=== PATIENT | male | born 1960 | race Caucasian/White ===

== ENCOUNTER → 2016-06-06 | Outpatient (CLI) | payer OTHER ==
[2016-06-06 08:43] LABS: BASO % 0.9 % (0.0-1.0); EOS # 0.1 K/mm3 (0.0-0.50); EOS % 2.2 % (0.0-3.0); LARGE UNSTAINED CELL # 0.3 K/mm3 (0.0-0.4); LARGE UNSTAINED CELL % 4.2 % (0.0-4.0); LYMPH # 1.8 K/mm3 (1.5-4.5); LYMPH % 27.9 % (24.0-44.0); MEAN CORPUSCULAR HEMOGLOBIN 29.8 pg (27.0-33.0); MEAN CORPUSCULAR HGB CONC 34.2 g/dl (32.0-36.5); MEAN CORPUSCULAR VOLUME 87.2 fl (80.0-96.0); MONO # 0.3 K/mm3 (0.0-0.8); MONO % 5.4 % (0.0-5.0); NEUTROPHILS # 3.7 K/mm3 (1.8-7.7); NEUTROPHILS % 59.5 % (36.0-66.0); PLATELET COUNT, AUTOMATED 235 k/mm3 (150-450); RED CELL DISTRIBUTION WIDTH 12.7 % (11.5-14.5); WHITE BLOOD COUNT 6.3 K/mm3 (4.0-10.0)
[2016-06-06 08:58] LABS: ALBUMIN/GLOBULIN RATIO 1.29 (1.00-1.93); ALKALINE PHOSPHATASE 105 U/L (45-117); ALT/SGPT 38 U/L (12-78); ANION GAP 12 MEQ/L (8-16); AST/SGOT 28 U/L (15-37); BILIRUBIN,TOTAL 0.4 MG/DL (0.2-1.0); BLOOD UREA NITROGEN 20 MG/DL (7-18); CALCIUM LEVEL 8.8 MG/DL (8.5-10.1); CARBON DIOXIDE LEVEL 27 MEQ/L (21-32); CHLORIDE LEVEL 105 MEQ/L (98-107); CREATININE FOR GFR 1.22 MG/DL (0.70-1.30); GLOMERULAR FILTRATION RATE > 60.0 (>56); GLUCOSE, FASTING 115 MG/DL (70-105); POTASSIUM SERUM 4.4 MEQ/L (3.5-5.1); SODIUM LEVEL 144 MEQ/L (136-145); TOTAL PROTEIN 7.1 GM/DL (6.4-8.2)
[2016-06-06 11:06] LABS: VITAMIN B12 LEVEL 327 PG/ML (247-911)
== END ==
LOC: M LAB 07:44
PROVIDERS: ATTEND Family Medicine
DX: N18.2 Chronic kidney disease, stage 2 (mild) (principal); I12.9 Hypertensive chronic kidney disease with stage 1 through stage 4 chronic kidney disease, or unspecified chronic kidney disease; E11.9 Type 2 diabetes mellitus without complications; E55.9 Vitamin D deficiency, unspecified

== ENCOUNTER → 2016-12-06 | Outpatient (CLI) | payer OTHER ==
[2016-12-06 08:57] LABS: CHOLESTEROL LEVEL 159 MG/DL (<200); FERRITIN 242 NG/ML (26-388); TRIGLYCERIDES LEVEL 85 MG/DL (<150)
[2016-12-06 14:03] LABS: VITAMIN B12 LEVEL 848 PG/ML (247-911)
[2016-12-08 11:32] LABS: PRETREATED FOLATE FOR RBCFOL 9.9 NG/ML
== END ==
LOC: M LAB 07:33
PROVIDERS: ATTEND Family Medicine
DX: E78.2 Mixed hyperlipidemia (principal); E53.8 Deficiency of other specified B group vitamins; E11.9 Type 2 diabetes mellitus without complications; Z12.5 Encounter for screening for malignant neoplasm of prostate
CPT/HCPCS: 36415; 80061; 82550; 82607; 82728; 82747; 83036; 84443; 86140; G0103

== ENCOUNTER → 2017-04-21 | Outpatient (CLI) | payer OTHER ==
[2017-04-21 09:30] LABS: ESTIMATED AVERAGE GLUCOSE 134 MG/DL (60-110); HEMOGLOBIN A1c 6.3 %
[2017-04-21 09:36] LABS: ALBUMIN 4.2 GM/DL (3.2-5.2); ALBUMIN/GLOBULIN RATIO 1.45 (1.00-1.93); ALKALINE PHOSPHATASE 84 U/L (45-117); ALT/SGPT 36 U/L (12-78); ANION GAP 8 MEQ/L (8-16); AST/SGOT 23 U/L (7-37); BILIRUBIN,TOTAL 0.8 MG/DL (0.2-1.0); BLOOD UREA NITROGEN 18 MG/DL (7-18); CALCIUM LEVEL 8.9 MG/DL (8.5-10.1); CARBON DIOXIDE LEVEL 29 MEQ/L (21-32); CHLORIDE LEVEL 105 MEQ/L (98-107); CHOLESTEROL LEVEL 123 MG/DL (<200); CPK CREATINE PHOSPHOKINASE 66 U/L (39-308); CREATININE FOR GFR 1.21 MG/DL (0.70-1.30); GLOMERULAR FILTRATION RATE > 60.0 (>56); GLUCOSE, FASTING 105 MG/DL (70-105); HDL CHOLESTEROL 60 MG/DL (>40); LDL CHOLESTEROL 48.6 MG/DL (<100); MAGNESIUM LEVEL 2.4 MG/DL (1.8-2.4); NON-HDL-C 63 MG/DL; POTASSIUM SERUM 4.6 MEQ/L (3.5-5.1); PSA SCREENING 1.92 NG/ML (< 4.0); SODIUM LEVEL 142 MEQ/L (136-145); TOTAL PROTEIN 7.1 GM/DL (6.4-8.2); TRIGLYCERIDES LEVEL 72 MG/DL (<150)
[2017-04-23 11:23] LABS: TOTAL 25(OH) VITAMIN D 50.1 NG/ML (30.0-100.0)
[2017-04-23 11:39] LABS: PTH INTACT 37.9 PG/ML (14.0-72.0)
[2017-04-24 14:14] LABS: INSULIN LEVEL 11.1 uIU/mL (2.6-24.9)
== END ==
LOC: M LAB 08:02
DX: E78.2 Mixed hyperlipidemia (principal); N18.2 Chronic kidney disease, stage 2 (mild); Z12.5 Encounter for screening for malignant neoplasm of prostate; E11.9 Type 2 diabetes mellitus without complications; E55.9 Vitamin D deficiency, unspecified

== ENCOUNTER → 2017-08-29 | Outpatient (CLI) | payer OTHER ==
[2017-08-29 08:45] LABS: BASO % 0.6 % (0.0-1.0); EOS # 0.1 10^3/uL (0.0-0.50); HEMATOCRIT 45.9 % (42.0-52.0); HEMOGLOBIN 15.3 g/dl (13.5-17.5); IMMATURE GRANULOCYTE % 0.4 % (0-3.0); LYMPH # 2.1 10^3/uL (1.5-4.5); LYMPH % 29.8 % (24.0-44.0); MEAN CORPUSCULAR HEMOGLOBIN 29.3 pg (27.0-33.0); MEAN CORPUSCULAR HGB CONC 33.3 g/dl (32.0-36.5); MEAN CORPUSCULAR VOLUME 87.8 fl (80.0-96.0); MONO # 0.7 10^3/uL (0.0-0.8); MONO % 9.6 % (0.0-5.0); NEUTROPHILS % 57.6 % (36.0-66.0); PLATELET COUNT, AUTOMATED 288 10^3/uL (150-450); RED BLOOD COUNT 5.23 10^6/uL (4.30-6.10); RED CELL DISTRIBUTION WIDTH 13.1 % (11.5-14.5); WHITE BLOOD COUNT 6.9 10^3/uL (4.0-10.0)
[2017-08-29 08:51] LABS: APPEARANCE, URINE CLEAR (CLEAR); BACTERIA, URINE AUTO NEGATIVE (NEGATIVE); BILIRUBIN, URINE AUTO NEGATIVE (NEGATIVE); BLOOD, URINE BLOOD NEGATIVE (NEGATIVE); COLOR, URINE YELLOW (YELLOW); GLUCOSE, URINE (UA) AUTO NEGATIVE (NEGATIVE); KETONE, URINE AUTO NEGATIVE (NEGATIVE); LEUKOCYTE ESTERASE, URINE AUTO NEGATIVE (NEGATIVE); MUCUS, URINE SMALL (NEGATIVE); NITRITE, URINE AUTO NEGATIVE (NEGATIVE); PROTEIN, URINE AUTO NEGATIVE (NEGATIVE); RBC, URINE AUTO 0 /HPF (0-3); SPECIFIC GRAVITY URINE AUTO 1.019 (1.002-1.035); SQUAMOUS EPITHELIAL CELL UR AU 0 /HPF (0-6); UROBILINOGEN, URINE AUTO 0.2 mg/dL (0.0-2.0); WBC, URINE AUTO 0 /HPF (0-3)
[2017-08-29 09:22] LABS: ALBUMIN 4.1 GM/DL (3.2-5.2); ALBUMIN/GLOBULIN RATIO 1.28 (1.00-1.93); ALKALINE PHOSPHATASE 83 U/L (45-117); ALT/SGPT 34 U/L (12-78); ANION GAP 5 MEQ/L (8-16); AST/SGOT 22 U/L (7-37); BILIRUBIN,TOTAL 0.8 MG/DL (0.2-1.0); BLOOD UREA NITROGEN 21 MG/DL (7-18); CALCIUM LEVEL 9.1 MG/DL (8.5-10.1); CARBON DIOXIDE LEVEL 30 MEQ/L (21-32); CHLORIDE LEVEL 106 MEQ/L (98-107); CREATININE FOR GFR 1.24 MG/DL (0.70-1.30); FERRITIN 201 NG/ML (26-388); GLOMERULAR FILTRATION RATE > 60.0 (>56); GLUCOSE, FASTING 103 MG/DL (70-100); MALB URINE SIEMENS 14.5 MG/L; MAU/CREAT RATIO 7.5 MCG/MG (0.0-30.0); POTASSIUM SERUM 4.8 MEQ/L (3.5-5.1); SODIUM LEVEL 141 MEQ/L (136-145); TOTAL PROTEIN 7.3 GM/DL (6.4-8.2)
[2017-08-29 09:33] LABS: ESTIMATED AVERAGE GLUCOSE 134 MG/DL (60-110); HEMOGLOBIN A1c 6.3 %
[2017-08-29 11:01] LABS: VITAMIN B12 LEVEL 507 PG/ML (247-911)
== END ==
LOC: M LAB 07:46
DX: E53.8 Deficiency of other specified B group vitamins (principal); I10 Essential (primary) hypertension; E11.9 Type 2 diabetes mellitus without complications
CPT/HCPCS: 82607

== ENCOUNTER → 2017-10-11 | Outpatient (CLI) | payer OTHER | LOC: M RAD 15:21 | DX: J32.9 Chronic sinusitis, unspecified (principal) | CPT/HCPCS: 70220 ==

== ENCOUNTER → 2017-12-19 | Outpatient (CLI) | payer OTHER | LOC: M SMT 12:43 | DX: I10 Essential (primary) hypertension (principal) | CPT/HCPCS: 71046 ==

== ENCOUNTER → 2017-12-20 | Outpatient (REF) | payer OTHER | LOC: M SFHCPLAZ 15:41 | DX: J32.9 Chronic sinusitis, unspecified (principal) ==

== ENCOUNTER → 2018-02-15 | Outpatient (CLI) | payer OTHER ==
[2018-02-15 13:33] LABS: BASO # 0.1 10^3/uL (0.0-0.2); BASO % 0.8 % (0.0-1.0); EOS # 0.1 10^3/uL (0.0-0.50); HEMATOCRIT 44.1 % (42.0-52.0); HEMOGLOBIN 15.2 g/dl (13.5-17.5); IMMATURE GRANULOCYTE % 0.5 % (0-3.0); LYMPH # 1.9 10^3/uL (1.5-4.5); LYMPH % 29.5 % (24.0-44.0); MEAN CORPUSCULAR HEMOGLOBIN 29.8 pg (27.0-33.0); MEAN CORPUSCULAR HGB CONC 34.5 g/dl (32.0-36.5); MEAN CORPUSCULAR VOLUME 86.5 fl (80.0-96.0); MONO # 0.6 10^3/uL (0.0-0.8); MONO % 8.8 % (0.0-5.0); NEUTROPHILS # 3.9 10^3/uL (1.8-7.7); NEUTROPHILS % 58.4 % (36.0-66.0); PLATELET COUNT, AUTOMATED 291 10^3/uL (150-450); RETIC HEMOGLOBIN EQUIVALENT 34.6 pg (24-36); WHITE BLOOD COUNT 6.6 10^3/uL (4.0-10.0)
[2018-02-15 13:51] LABS: ALBUMIN 4.2 GM/DL (3.2-5.2); ALKALINE PHOSPHATASE 74 U/L (45-117); ALT/SGPT 32 U/L (12-78); ANION GAP 7 MEQ/L (8-16); AST/SGOT 20 U/L (7-37); BILIRUBIN,TOTAL 0.6 MG/DL (0.2-1.0); BLOOD UREA NITROGEN 27 MG/DL (7-18); C REACTIVE PROTEIN QUANTITATIV < 0.30 MG/DL (0.00-0.30); CALCIUM LEVEL 9.7 MG/DL (8.5-10.1); CARBON DIOXIDE LEVEL 27 MEQ/L (21-32); CHLORIDE LEVEL 104 MEQ/L (98-107); CHOLESTEROL LEVEL 139 MG/DL (<200); CHOLESTEROL RISK RATIO 2.316 (<5); CPK CREATINE PHOSPHOKINASE 86 U/L (39-308); CREATININE FOR GFR 1.39 MG/DL (0.70-1.30); FREE T4 1.22 NG/DL (0.76-1.46); GLOMERULAR FILTRATION RATE 55.9 (>56); GLUCOSE, FASTING 100 MG/DL (70-100); HDL CHOLESTEROL 60 MG/DL (>40); LDL CHOLESTEROL 62 MG/DL (<100); NON-HDL-C 79 MG/DL; POTASSIUM SERUM 4.7 MEQ/L (3.5-5.1); SODIUM LEVEL 138 MEQ/L (136-145); TOTAL PROTEIN 7.2 GM/DL (6.4-8.2); TRIGLYCERIDES LEVEL 86 MG/DL (<150)
[2018-02-15 13:59] LABS: ESTIMATED AVERAGE GLUCOSE 137 MG/DL (60-110); HEMOGLOBIN A1c 6.4 %
== END ==
LOC: M SMT 08:48
DX: E53.8 Deficiency of other specified B group vitamins (principal); N18.2 Chronic kidney disease, stage 2 (mild); E11.22 Type 2 diabetes mellitus with diabetic chronic kidney disease
CPT/HCPCS: 82550

== ENCOUNTER → 2018-02-15 | Outpatient (CLI) | payer OTHER ==
[2018-02-15 14:46] LABS: COMPLEMENT C3 135 MG/DL (90-180); COMPLEMENT C4 23 MG/DL (10-40); IMMUNOGLOBULIN A 153 MG/DL (70-400); IMMUNOGLOBULIN G 740 MG/DL (681-1648); IMMUNOGLOBULIN M 162 MG/DL (40-230)
[2018-02-15 14:47] LABS: IMMUNOGLOBULIN E < 3.6 IU/ML (<100)
[2018-02-19 00:06] LABS: ALPHA 1 ANTITRYPSIN 140 mg/dL (90-200)
[2018-02-19 00:06] LABS: D001-IgE D pteronyssinus 1.52 kU/L (Class III); E001-IgE Cat Epith/Dander 0.21 kU/L (Class 0/I); E005-IgE Dog Dander < 0.10 kU/L (Class 0); F002-IgE Milk 0.13 kU/L (Class 0/I); F004-IgE Wheat < 0.10 kU/L (Class 0); F013-IgE Peanut < 0.10 kU/L (Class 0); F014-IgE Soybean < 0.10 kU/L (Class 0); F026-IgE Pork < 0.10 kU/L (Class 0); F027-IgE Beef < 0.10 kU/L (Class 0); FX02-IgE Food Mix (Sea Foods) Negative (.); G002-IgE Bermuda Grass < 0.10 kU/L (Class 0); G008-IgE Kentucky Bluegrass 0.97 kU/L (Class II); M001-IgE Penicillium chrysogen < 0.10 kU/L (Class 0); M002 IgE Cladosporium herbaru < 0.10 kU/L (Class 0); M003 IgE Aspergillus fumigatu < 0.10 kU/L (Class 0); M006-IgE Alternaria alternata < 0.10 kU/L (Class 0); T001-IgE Maple/Box Elder < 0.10 kU/L (Class 0); T003-IgE Common Silver Birch < 0.10 kU/L (Class 0); T006-IgE Cedar, Mountain < 0.10 kU/L (Class 0); T007-IgE Oak, White < 0.10 kU/L (Class 0); T008-IgE Elm, American < 0.10 kU/L (Class 0); T015-IgE Ash, White < 0.10 kU/L (Class 0); T041-IgE Hickory, White < 0.10 kU/L (Class 0); T070-IgE White Mulberry < 0.10 kU/L (Class 0); W001-IgE Ragweed, Short < 0.10 kU/L (Class 0); W009-IgE Plantain, English < 0.10 kU/L (Class 0); W014-IgE Pigweed, Rough < 0.10 kU/L (Class 0); W018-IgE Sheep Sorrel < 0.10 kU/L (Class 0)
== END ==
LOC: M SMT 08:44
DX: J30.1 Allergic rhinitis due to pollen (principal); J30.81 Allergic rhinitis due to animal (cat) (dog) hair and dander; J30.89 Other allergic rhinitis; R05 Cough; J45.40 Moderate persistent asthma, uncomplicated; H10.45 Other chronic allergic conjunctivitis; J32.0 Chronic maxillary sinusitis
CPT/HCPCS: 82785

== ENCOUNTER → 2018-02-27 | Outpatient (CLI) | payer OTHER | LOC: M RAD 08:40 | DX: N18.2 Chronic kidney disease, stage 2 (mild) (principal) | CPT/HCPCS: 76775 ==

== ENCOUNTER → 2018-04-11 | Outpatient (CLI) | payer OTHER ==
[~2018-04-11] MED LIST: ADV500INH INH; AYRSPR; ESOM1CAP5 PO; EXCETAB81 PO; FLON1SPR; FLOV250A2 INH; IBUP200C25 PO; IRBE75TA5 PO; KETO2CR EXT; METF750T PO; MONT10TA2 PO; MUCI600T31 PO; OLOP1OPD OU; PROAAER10 INH; ROBI1CAP PO; SIMV40TA2 PO; SUDA30TA8 PO; VITA200016 PO; VITA500T3 PO; ZYRT10CA5 PO
--- NOTE | 2018-04-12 01:56 | REP ---
Clinical: Acute cough . Comparison: 12/19/2017 . Technique: PA and lateral. Findings: The mediastinum and cardiac silhouette are normal. The lung valdez are clear and without acute consolidation, effusion, or pneumothorax. The skeletal structures are intact and normal. Impression: 1. No acute cardiopulmonary process. Electronically Signed by Pavel Alexander MD 04/12/2018 01:47 A
== END ==
LOC: M SMT 15:32
PROVIDERS: ATTEND Internal Medicine Pulmonary Disease
DX: R05 Cough (principal)

== ENCOUNTER 2018-04-17 07:40 | Day surgery (SDC) | payer OTHER ==
[~2018-04-17] VITALS: Ht 182.9 cm; Wt 69.9 kg
[~2018-04-17 07:40] MED LIST changes: +NS 1,000 ML IV SCH
[2018-04-17] MEDS ORDERED: PROPOFOL 200 MG/20 ML VIAL As Ordered ONE (09:06)
[2018-04-17] MEDS ORDERED: fentaNYL 100 MCG/2 ML INJECTION (J3010) As Ordered ONE (09:06)
[2018-04-17] MEDS ORDERED: LIDOCAINE 2% INJ 100 MG/5 ML SDV (FOR ANES.) As Ordered ONE (09:06)
--- NOTE | 2018-04-17 09:21 | ROOR ---
Patient Name: Aquiles Weir Procedure Date: 04/17/2018 9:05 AM Date of : 1960 Age: 57 [facility]: [facility] Gender: Male Note Status: Finalized Procedure: Upper Endoscopy + Biopsies Indications: Heartburn, Exclusion of Smith's esophagus Providers: Maximo Chiang MD Referring MD: Filemon Anderson MD Requesting Provider: Medicines: Monitored Anesthesia Care Complications: No immediate complications. Procedure: Pre-Anesthesia Assessment: - The heart rate, respiratory rate, oxygen saturations, blood pressure, adequacy of pulmonary ventilation, and response to care were monitored throughout the procedure. The Endoscope was introduced through the mouth, and advanced to the second part of duodenum. The upper GI endoscopy was accomplished without difficulty. The patient tolerated the procedure well. Findings: The Z-line was irregular and was found 39 cm from the incisors. Multiple biopsies were obtained with cold forceps for evaluation to rule out Smith's Esophagus randomly at the gastroesophageal junction. No other significant abnormalities were identified in a careful examination of the stomach. The exam of the duodenum was otherwise normal. Impression: - Z-line irregular, 39 cm from the incisors. - Multiple biopsies were obtained at the gastroesophageal junction. - The examination was otherwise normal. Recommendation: - Patient has a contact number available for emergencies. The signs and symptoms of potential delayed complications were discussed with the patient. Return to normal activities tomorrow. Written discharge instructions were provided to the patient. - High fiber diet. - Discharge patient to home. - Follow an antireflux regimen. - Continue present medications. - Await pathology results. - Telephone GI clinic for pathology results in 1 week. - Return to referring physician. - The findings and recommendations were discussed with the patient's family. Maximo Chiang MD Maximo Chiang MD 04/17/2018 9:21:05 AM This report has been signed electronically. Number of Addenda: 0 Note Initiated On: 04/17/2018 9:05 AM Estimated Blood Loss: Estimated blood loss: none.
--- NOTE | 2018-04-17 09:39 | ROOR ---
Patient Name: Aquiles Weir Procedure Date: 04/17/2018 9:06 AM Date of : 1960 Age: 57 Room: [facility] Gender: Male Note Status: Finalized Procedure: Total Colonoscopy to Cecum + Cold Snare Polypectomy + Hemoclip Indications: High risk colon cancer surveillance: Personal history of colonic polyps, Last colonoscopy: 2010 Providers: Maximo Chiang MD Referring MD: Filemon Anderson MD Requesting Provider: Medicines: Monitored Anesthesia Care Complications: No immediate complications. Procedure: Pre-Anesthesia Assessment: - The heart rate, respiratory rate, oxygen saturations, blood pressure, adequacy of pulmonary ventilation, and response to care were monitored throughout the procedure. The Colonoscope was introduced through the anus and advanced to the cecum, identified by appendiceal orifice and ileocecal valve. The colonoscopy was performed without difficulty. The patient tolerated the procedure well. The quality of the bowel preparation was excellent. Findings: The perianal and digital rectal examinations were normal. Non-bleeding internal hemorrhoids were found during retroflexion. The hemorrhoids were small and Grade I (internal hemorrhoids that do not prolapse). A medium polyp was found at 40 cm proximal to the anus. The polyp was sessile. The polyp was removed with a cold snare. Resection and retrieval were complete. To prevent bleeding after the polypectomy, one hemostatic clip was successfully placed (MR conditional). There was no bleeding at the end of the procedure. The exam was otherwise without abnormality on direct and retroflexion views. Impression: - Non-bleeding internal hemorrhoids. - One medium polyp at 40 cm proximal to the anus, removed with a cold snare. Resected and retrieved. Clip (MR conditional) was placed. - The examination was otherwise normal on direct and retroflexion views. - The exam was otherwise normal to the cecum. Recommendation: - Patient has a contact number available for emergencies. The signs and symptoms of potential delayed complications were discussed with the patient. Return to normal activities tomorrow. Written discharge instructions were provided to the patient. - Discharge patient to home. - Continue present medications. - Await pathology results. - Telephone GI clinic for pathology results in 1 week. - Repeat colonoscopy in 5 years for surveillance based on pathology results. - Return to referring physician. - The findings and recommendations were discussed with the patient's family. Maximo Chiang MD Maximo Chiang MD 04/17/2018 9:38:45 AM This report has been signed electronically. Number of Addenda: 0 Note Initiated On: 04/17/2018 9:06 AM Estimated Blood Loss: Estimated blood loss: none.
[2018-04-17 10:08] VITALS: BP 147/88
== END 2018-04-17 10:09 | disposition home or self-care (01) ==
LOC: M OPP 07:40
PROVIDERS: ATTEND Internal Medicine Gastroenterology
DX: Z12.11 Encounter for screening for malignant neoplasm of colon (principal); Z86.010 Personal history of colon polyps; K64.0 First degree hemorrhoids; K63.5 Polyp of colon; K22.8 Other specified diseases of esophagus; R12 Heartburn; E11.9 Type 2 diabetes mellitus without complications; Z79.84 Long term (current) use of oral hypoglycemic drugs; Z79.899 Other long term (current) drug therapy; Z91.040 Latex allergy status
CPT/HCPCS: 43239; 45385; 88305; J3010

== ENCOUNTER → 2018-04-25 | Outpatient (CLI) | payer OTHER ==
[~2018-04-25] MED LIST changes: -NS 1,000 ML IV SCH
[2018-04-25 15:01] LABS: BLOOD UREA NITROGEN 22 MG/DL (7-18); CREATININE FOR GFR 1.26 MG/DL (0.70-1.30); GLOMERULAR FILTRATION RATE > 60.0 (>56)
== END ==
LOC: M LAB 13:01
PROVIDERS: ATTEND Internal Medicine Pulmonary Disease
DX: Z01.812 Encounter for preprocedural laboratory examination (principal)

== ENCOUNTER → 2018-04-29 | Outpatient (CLI) | payer OTHER ==
[~2018-04-29] MED LIST changes: +ISOVUE-370 76% 100ML VIAL (Q9967) As Ordered ONE
--- NOTE | 2018-04-29 11:58 | REP ---
Clinical: Cough. Technique: Axial contrast enhanced images from the thoracic inlet to the upper abdomen with coronal and sagittal re-formations using 100 ml Isovue 370 intravenous contrast material. Findings: Lung valdez are well-aerated and without consolidation. Minimal linear scarring at the lingula and right lower lobe noted. Very subtle areas of opacity are suggested within the left upper lobe (images 50-55) and left base which may reflect early or resolving pneumonitis. Mild infrahilar bronchiectasis is suggested. No effusion. No pneumothorax. Tracheobronchial tree is patent. No axillary, hilar, or mediastinal adenopathy. The mediastinum demonstrates normal thoracic aorta and heart/pericardium. Surrounding musculoskeletal structures are intact. Limited upper abdomen demonstrates normal bilateral adrenal glands. Impression: 1. Extremely subtle areas of opacity in the left upper lobe and left base may represent early or resolving pneumonitis and should be correlated clinically. 2. Mild infrahilar bronchiectasis. Electronically Signed by Pavel Alexander MD 04/29/2018 11:50 A
== END ==
LOC: M RAD 10:30
PROVIDERS: ATTEND Internal Medicine Pulmonary Disease
DX: R05 Cough (principal); J47.9 Bronchiectasis, uncomplicated
CPT/HCPCS: 71260; Q9967

== ENCOUNTER → 2018-05-09 | Outpatient (REF) | payer OTHER ==
[~2018-05-09] MED LIST changes: -ISOVUE-370 76% 100ML VIAL (Q9967) As Ordered ONE
[2018-05-09 15:08] LABS: IMMUNOGLOBULIN E 12.7 IU/ML (<100); IMMUNOGLOBULIN G 686 MG/DL (681-1648); RHEUMATOID FACTOR QUANT < 10.0 IU/ML (<15.0)
[2018-05-14 01:34] LABS: ANCA-ATYPICAL <1:20 titer (Neg:<1:20); ANTI DOUBLE STRAND-DNA AB <1 IU/mL (0-9); ANTINUCLEAR ANTIBODIES DIRECT Negative (Negative); ASPERGILLUS FLAVUS ABY Negative (Neg:<1:1); ASPERGILLUS FUMIGATUS ABY Negative (Neg:<1:1); ASPERGILLUS NIGER ABY Negative (Neg:<1:1); CYTOPLASMIC NEUTROP AB ANCA-C <1:20 titer (Neg:<1:20); IgG SERUM (part of Subclasses) 683 mg/dL (700-1600); IgG Subclass 1 395 mg/dL (248-810); IgG Subclass 2 257 mg/dL (130-555); IgG Subclass 3 41 mg/dL (15-102); IgG Subclass 4 25 mg/dL (2-96); PERINUCLEAR AB ANCA-P <1:20 titer (Neg:<1:20); RNP ANTIBODIES <0.2 AI (0.0-0.9); SJOGREN'S ANTI SS-A <0.2 AI (0.0-0.9); SJOGREN'S ANTI SS-B <0.2 AI (0.0-0.9); SMITH ANTIBODIES <0.2 AI (0.0-0.9)
== END ==
LOC: M LAB REF 12:56
PROVIDERS: ATTEND Internal Medicine Pulmonary Disease
DX: J47.9 Bronchiectasis, uncomplicated (principal)

== ENCOUNTER → 2018-06-13 | Outpatient (CLI) | payer OTHER | LOC: M LAB 09:38 | PROVIDERS: ATTEND Internal Medicine Pulmonary Disease | DX: J47.9 Bronchiectasis, uncomplicated (principal) ==

== ENCOUNTER → 2018-06-19 | Outpatient (CLI) | payer OTHER ==
[2018-06-19 10:44] LABS: WEIGHT OF SWEAT LFT ARM QNS MG; WEIGHT OF SWEAT RT ARM QNS MG
== END ==
LOC: M LAB 09:37
PROVIDERS: ATTEND Internal Medicine Pulmonary Disease
DX: J47.9 Bronchiectasis, uncomplicated (principal)

== ENCOUNTER → 2018-07-02 | Outpatient (CLI) | payer OTHER ==
[~2018-07-02] MED LIST changes: -OLOP1OPD OU; +PATA2.5S OU
[2018-07-02 12:51] LABS: ALBUMIN 3.9 GM/DL (3.2-5.2); ALT/SGPT 36 U/L (12-78); BILIRUBIN,TOTAL 0.5 MG/DL (0.2-1.0); BLOOD UREA NITROGEN 19 MG/DL (7-18); C REACTIVE PROTEIN QUANTITATIV 0.34 MG/DL (0.00-0.30); CALCIUM LEVEL 9.5 MG/DL (8.5-10.1); CARBON DIOXIDE LEVEL 28 MEQ/L (21-32); CHLORIDE LEVEL 107 MEQ/L (98-107); CREATININE FOR GFR 1.27 MG/DL (0.70-1.30); GLOMERULAR FILTRATION RATE > 60.0 (>56); GLUCOSE, FASTING 98 MG/DL (70-100); POTASSIUM SERUM 4.8 MEQ/L (3.5-5.1); SODIUM LEVEL 141 MEQ/L (136-145); TOTAL PROTEIN 6.9 GM/DL (6.4-8.2)
[2018-07-04 00:06] LABS: % CD8 Pos Lymph 17.9 % (12.0-35.5); %CD4 Pos Lymphs 49.6 % (30.8-58.5); ABS Eosinophils 0.1 x10E3/uL (0.0-0.4); ABS Lymphs 1.5 x10E3/uL (0.7-3.1); ABS Monocytes 0.9 x10E3/uL (0.1-0.9); ABS Neutophils 5.5 x10E3/uL (1.4-7.0); Abs CD4 Helper 744 /uL (359-1519); Abs CD8 Suppres 269 /uL (109-897); CD4/CD8 Ratio 2.77 (0.92-3.72); Eosinophils 1 % (Not Estab.); HCT 40.9 % (37.5-51.0); HGB 14.3 g/dL (13.0-17.7); Imm ABS Grans 0.1 x10E3/uL (0.0-0.1); Immature Grans 2 % (Not Estab.); Lymphocytes 19 % (Not Estab.); MCH 29.9 pg (26.6-33.0); MCV 86 fL (79-97); Monocytes 11 % (Not Estab.); Neutrophils 67 % (Not Estab.); Platelets 320 x10E3/uL (150-379); RBC 4.78 x10E6/uL (4.14-5.80); RDW 13.3 % (12.3-15.4); WBC 8.2 x10E3/uL (3.4-10.8)
[2018-07-05 11:13] LABS: CRYPTOCOCCUS ANTIBODY SERUM Negative (Neg:<1:2); CRYPTOCOCCUS ANTIGEN SER Negative (Negative)
== END ==
LOC: M LAB 10:12
PROVIDERS: ATTEND Internal Medicine Infectious Disease
DX: B45.9 Cryptococcosis, unspecified (principal)

== ENCOUNTER → 2018-07-30 | Outpatient (CLI) | payer OTHER ==
[2018-07-30 10:33] LABS: BILIRUBIN,TOTAL 0.6 MG/DL (0.2-1.0); CALCIUM LEVEL 8.8 MG/DL (8.5-10.1); CREATININE FOR GFR 1.44 MG/DL (0.70-1.30); GLOMERULAR FILTRATION RATE 53.5 (>56); MAGNESIUM LEVEL 1.9 MG/DL (1.8-2.4); POTASSIUM SERUM 4.6 MEQ/L (3.5-5.1); PTH INTACT 48.4 PG/ML (18.5-88.0); TOTAL 25(OH) VITAMIN D 50.3 NG/ML (30.0-100.0); TOTAL PROTEIN 7.3 GM/DL (6.4-8.2)
[2018-07-30 10:49] LABS: HEMOGLOBIN A1c 6.5 %
== END ==
LOC: M LAB 08:52
PROVIDERS: ATTEND Family Medicine
DX: N18.2 Chronic kidney disease, stage 2 (mild) (principal); E11.9 Type 2 diabetes mellitus without complications; Z12.5 Encounter for screening for malignant neoplasm of prostate; E55.9 Vitamin D deficiency, unspecified; E53.8 Deficiency of other specified B group vitamins
CPT/HCPCS: 36415; 80053; 82306; 82607; 83036; 83735; 83970; G0103

== ENCOUNTER → 2018-08-19 | Outpatient (CLI) | payer OTHER ==
[2018-08-19 19:38] LABS: BASO % 0.3 % (0.0-1.0); EOS % 0.2 % (0.0-3.0); HEMATOCRIT 43.1 % (42.0-52.0); HEMOGLOBIN 14.5 g/dl (13.5-17.5); LYMPH # 0.9 10^3/uL (1.5-4.5); MEAN CORPUSCULAR HGB CONC 33.6 g/dl (32.0-36.5); MEAN CORPUSCULAR VOLUME 89.2 fl (80.0-96.0); MONO # 1.2 10^3/uL (0.0-0.8); MONO % 7.7 % (0.0-5.0); NEUTROPHILS % 85.4 % (36.0-66.0); PLATELET COUNT, AUTOMATED 294 10^3/uL (150-450); RED BLOOD COUNT 4.83 10^6/uL (4.30-6.10); WHITE BLOOD COUNT 15.2 10^3/uL (4.0-10.0)
--- NOTE | 2018-08-19 19:48 | REP ---
CHEST, TWO VIEWS: Two views of the chest are performed and compared to prior study of 04/11/2018. There is mild infiltrate in the lingula and left lower lobe. Right lung appears clear. Heart is normal in size. The mediastinal silhouette is unchanged. IMPRESSION: Lingular and left lower lobe infiltrate. Electronically Signed by Vincent Small MD 08/19/2018 08:04 P
[2018-08-19 20:01] LABS: ALBUMIN 3.9 GM/DL (3.2-5.2); BILIRUBIN,TOTAL 1.4 MG/DL (0.2-1.0); CALCIUM LEVEL 9.7 MG/DL (8.5-10.1); CREATININE FOR GFR 1.66 MG/DL (0.70-1.30); GLOMERULAR FILTRATION RATE 45.4 (>56); POTASSIUM SERUM 4.9 MEQ/L (3.5-5.1); TOTAL PROTEIN 7.1 GM/DL (6.4-8.2)
== END ==
LOC: M WUC 18:35
PROVIDERS: ATTEND Physician Assistant
DX: R91.8 Other nonspecific abnormal finding of lung field (principal); R05 Cough; R50.9 Fever, unspecified

== ENCOUNTER → 2018-09-03 | Outpatient (CLI) | payer OTHER ==
--- NOTE | 2018-09-04 05:46 | REP ---
Clinical: Mycobacterial infection. Technique: Axial noncontrast images from the thoracic inlet to the upper abdomen with coronal and sagittal re-formations. Comparison: 04/26/2018. Findings: Very subtle tree in bud type opacities are appreciated primarily in the left lower lobe and lingula and to a lesser extent the right base. These findings appear slightly more pronounced than prior examination. No focal consolidation or effusion. No pneumothorax. Mild/early moderate chronic perihilar/infrahilar bronchiectasis is again noted. No significant axillary, hilar, or mediastinal adenopathy. Mediastinum demonstrates normal thoracic aorta and heart/pericardium. Limited upper abdomen is unremarkable. Impression: 1. Very subtle areas of opacity in the left lower lobe, lingula and right base may be consistent with the given history of mycobacterial infection. No discrete focal consolidation or effusion. Short-term follow-up to resolution may be warranted. 2. Early moderate chronic bronchiectasis. Electronically Signed by Pavel Alexander MD 09/04/2018 05:38 A
== END ==
LOC: M RAD 08:17
PROVIDERS: ATTEND Internal Medicine Infectious Disease
DX: R91.8 Other nonspecific abnormal finding of lung field (principal); J47.1 Bronchiectasis with (acute) exacerbation

== ENCOUNTER → 2018-10-23 | Outpatient (CLI) | payer OTHER ==
[~2018-10-23] MED LIST changes: +CYAN500T8 PO; -VITA500T3 PO
[2018-10-23 08:39] LABS: BASO % 0.7 % (0.0-1.0); EOS # 0.2 10^3/uL (0.0-0.50); EOS % 3.2 % (0.0-3.0); HEMATOCRIT 41.9 % (42.0-52.0); LYMPH # 1.4 10^3/uL (1.5-4.5); LYMPH % 25.2 % (24.0-44.0); MEAN CORPUSCULAR HGB CONC 33.4 g/dl (32.0-36.5); MEAN CORPUSCULAR VOLUME 89.9 fl (80.0-96.0); MONO # 0.6 10^3/uL (0.0-0.8); MONO % 10.9 % (0.0-5.0); NEUTROPHILS # 3.3 10^3/uL (1.8-7.7); NEUTROPHILS % 59.5 % (36.0-66.0); PLATELET COUNT, AUTOMATED 271 10^3/uL (150-450); RED BLOOD COUNT 4.66 10^6/uL (4.30-6.10); WHITE BLOOD COUNT 5.6 10^3/uL (4.0-10.0)
[2018-10-23 08:58] LABS: ALT/SGPT 30 U/L (12-78); BILIRUBIN,TOTAL 0.6 MG/DL (0.2-1.0); BLOOD UREA NITROGEN 21 MG/DL (7-18); C REACTIVE PROTEIN QUANTITATIV < 0.30 MG/DL (0.00-0.30); CALCIUM LEVEL 9.5 MG/DL (8.5-10.1); CARBON DIOXIDE LEVEL 31 MEQ/L (21-32); CHLORIDE LEVEL 106 MEQ/L (98-107); CREATININE FOR GFR 1.37 MG/DL (0.70-1.30); GLOMERULAR FILTRATION RATE 56.6 (>56); GLUCOSE, FASTING 96 MG/DL (70-100); POTASSIUM SERUM 4.2 MEQ/L (3.5-5.1); SODIUM LEVEL 141 MEQ/L (136-145)
== END ==
LOC: M LAB 07:40
PROVIDERS: ATTEND Internal Medicine Infectious Disease
DX: J47.9 Bronchiectasis, uncomplicated (principal); A31.0 Pulmonary mycobacterial infection

== ENCOUNTER → 2018-12-10 | Outpatient (REF) | payer OTHER ==
[~2018-12-10] MED LIST changes: -METF750T PO; +METF750T36 PO
== END ==
LOC: M SFHCPLAZ 16:13
PROVIDERS: ATTEND Internal Medicine Infectious Disease
DX: A31.0 Pulmonary mycobacterial infection (principal)

== ENCOUNTER → 2019-03-04 | Outpatient (CLI) | payer OTHER ==
[~2019-03-04] MED LIST changes: -SIMV40TA2 PO; +SIMV40TA20 PO
[2019-03-04 08:52] LABS: BASO # 0.1 10^3/uL (0.0-0.2); BASO % 0.8 % (0.0-1.0); EOS # 0.2 10^3/uL (0.0-0.5); HEMATOCRIT 43.4 % (42.0-52.0); HEMOGLOBIN 14.5 g/dl (13.5-17.5); LYMPH # 1.8 10^3/uL (1.5-5.0); LYMPH % 26.9 % (24.0-44.0); MEAN CORPUSCULAR HEMOGLOBIN 29.5 pg (27.0-33.0); MEAN CORPUSCULAR HGB CONC 33.4 g/dl (32.0-36.5); MEAN CORPUSCULAR VOLUME 88.2 fl (80.0-96.0); MONO # 0.6 10^3/uL (0.0-0.8); MONO % 9.2 % (0.0-5.0); NEUTROPHILS # 3.9 10^3/uL (1.5-8.5); NEUTROPHILS % 59.5 % (36.0-66.0); PLATELET COUNT, AUTOMATED 262 10^3/uL (150-450); RED BLOOD COUNT 4.92 10^6/uL (4.30-6.10); WHITE BLOOD COUNT 6.6 10^3/uL (4.0-10.0)
[2019-03-04 09:22] LABS: BILIRUBIN,TOTAL 0.8 MG/DL (0.2-1.0); CALCIUM LEVEL 9.1 MG/DL (8.5-10.1); CREATININE FOR GFR 1.46 MG/DL (0.70-1.30); GLOMERULAR FILTRATION RATE 52.6 (>56); POTASSIUM SERUM 4.7 MEQ/L (3.5-5.1)
[2019-03-04 10:56] LABS: PTH INTACT 51.5 PG/ML (18.5-88.0); TOTAL 25(OH) VITAMIN D 48.3 NG/ML (30.0-100.0)
== END ==
LOC: M LAB 08:06
PROVIDERS: ATTEND Family Medicine
DX: E11.9 Type 2 diabetes mellitus without complications (principal); E55.9 Vitamin D deficiency, unspecified; I10 Essential (primary) hypertension; Z12.5 Encounter for screening for malignant neoplasm of prostate
CPT/HCPCS: 36415; 80053; 82306; 83036; 83970; 85025; G0103

== ENCOUNTER → 2019-08-11 | Outpatient (REF) | payer OTHER ==
[~2019-08-11] MED LIST changes: +IRBE75TA4 PO; -IRBE75TA5 PO; -MONT10TA2 PO; +MONT10TA4 PO
== END ==
LOC: M SFHCPLAZ 13:28
PROVIDERS: ATTEND Internal Medicine Infectious Disease
DX: B45.9 Cryptococcosis, unspecified (principal); A31.0 Pulmonary mycobacterial infection

== ENCOUNTER → 2019-08-11 | Outpatient (CLI) | payer OTHER ==
--- NOTE | 2019-08-11 19:02 | REPPI ---
Clinical: Mycobacterium avium complex . Comparison: 08/19/2018 . Technique: PA and lateral. Findings: The mediastinum and cardiac silhouette are normal. The lung valdez are clear and without acute consolidation, effusion, or pneumothorax. Previous infiltrates have resolved. The skeletal structures are intact and normal. Impression: 1. No acute cardiopulmonary process. 2. Previous infiltrate resolved. Electronically Signed by Pavel Alexander MD 08/11/2019 06:54 P
== END ==
LOC: M PLAIMG 11:32
PROVIDERS: ATTEND Internal Medicine Infectious Disease
DX: A31.0 Pulmonary mycobacterial infection (principal)

== ENCOUNTER → 2019-09-23 | Outpatient (CLI) | payer OTHER ==
[2019-09-23 11:07] LABS: BASO # 0.1 10^3/uL (0.0-0.2); BASO % 0.9 % (0.0-1.0); EOS # 0.2 10^3/uL (0.0-0.5); EOS % 3.2 % (0.0-3.0); HEMATOCRIT 42.1 % (42.0-52.0); HEMOGLOBIN 13.9 g/dl (13.5-17.5); LYMPH # 1.6 10^3/uL (1.5-5.0); LYMPH % 30.5 % (24.0-44.0); MEAN CORPUSCULAR HEMOGLOBIN 29.5 pg (27.0-33.0); MEAN CORPUSCULAR VOLUME 89.4 fl (80.0-96.0); MONO # 0.6 10^3/uL (0.0-0.8); MONO % 10.4 % (0.0-5.0); NEUTROPHILS # 2.9 10^3/uL (1.5-8.5); NEUTROPHILS % 54.8 % (36.0-66.0); PLATELET COUNT, AUTOMATED 290 10^3/uL (150-450); RED BLOOD COUNT 4.71 10^6/uL (4.30-6.10); WHITE BLOOD COUNT 5.3 10^3/uL (4.0-10.0)
[2019-09-23 11:46] LABS: ALBUMIN 4.1 GM/DL (3.2-5.2); BILIRUBIN,TOTAL 0.7 MG/DL (0.2-1.0); CALCIUM LEVEL 9.3 MG/DL (8.8-10.2); CHOLESTEROL RISK RATIO 2.305 (<5); CREATININE FOR GFR 1.51 MG/DL (0.70-1.30); GLOMERULAR FILTRATION RATE 50.4 (>49); POTASSIUM SERUM 4.7 MEQ/L (3.5-5.1); TOTAL PROTEIN 6.9 GM/DL (6.4-8.2)
[2019-09-23 11:54] LABS: TOTAL PROTEIN,RANDOM URINE 32.9 MG/DL (0.0-12.0)
[2019-09-23 12:13] LABS: HEMOGLOBIN A1c 6.3 %
== END ==
LOC: M PLALAB 08:52
PROVIDERS: ATTEND Family Medicine
DX: E11.9 Type 2 diabetes mellitus without complications (principal); I12.9 Hypertensive chronic kidney disease with stage 1 through stage 4 chronic kidney disease, or unspecified chronic kidney disease; N18.3 Chronic kidney disease, stage 3 (moderate)

== ENCOUNTER → 2019-11-07 | Outpatient (CLI) | payer OTHER ==
--- NOTE | 2019-12-19 14:14 | REP ---
CT OF THE CHEST WITHOUT IV CONTRAST: COMPARISON: 09/03/18 and 04/29/18. FINDINGS: The tree-in-bud densities identified on 09/03/18 in the left lower lobe and lingula and to a lesser extent in the right base have resolved. There are no other acute infiltrates or pleural effusions. There is a curvilinear scar in the right lower lobe, unchanged. There is a curvilinear scar inferiorly in the lingula, unchanged. Lung valdez are otherwise clear. There is bronchiectasis, unchanged from 04/29/18. There are no lung nodules or masses. There is no mediastinal or axillary lymph node enlargement. In the absence of IV contrast, the study is insensitive for hilar lymph node enlargement. The unenhanced thoracic aorta is unremarkable. Cardiac size is normal. There is no pericardial effusion. The visualized upper abdominal contents are unremarkable. IMPRESSION: The tree-in-bud densities identified on 09/03/18 have resolved. There are no acute infiltrates or pleural effusions today. There is chronic bronchiectasis. There are parenchymal scars in the right lower lobe and in the lingula inferiorly. MTDD
== END ==
LOC: M RAD 08:52
PROVIDERS: ATTEND Internal Medicine Infectious Disease
DX: J47.9 Bronchiectasis, uncomplicated (principal); R91.8 Other nonspecific abnormal finding of lung field

== ENCOUNTER → 2020-01-12 | Outpatient (REF) | payer OTHER | LOC: M SFHCPLAZ 10:19 | PROVIDERS: ATTEND Internal Medicine Infectious Disease | DX: Z00.00 Encounter for general adult medical examination without abnormal findings (principal) ==

== ENCOUNTER → 2020-02-17 | Outpatient (REF) | payer OTHER | LOC: M SFHCPLAZ 16:50 | PROVIDERS: ATTEND Internal Medicine Infectious Disease | DX: A31.0 Pulmonary mycobacterial infection (principal) ==

== ENCOUNTER → 2020-03-15 | Outpatient (REF) | payer OTHER ==
[~2020-03-15] MED LIST changes: +CYAN500T14 PO; -CYAN500T8 PO; -MONT10TA4 PO; +MONT5TAB2 PO
[2020-03-15 13:39] LABS: APPEARANCE, URINE CLOUDY (CLEAR); BACTERIA, URINE AUTO NEGATIVE (NEGATIVE); BILIRUBIN, URINE AUTO NEGATIVE (NEGATIVE); BLOOD, URINE BLOOD NEGATIVE (NEGATIVE); COLOR, URINE AMBER (YELLOW); GLUCOSE, URINE (UA) AUTO NEGATIVE (NEGATIVE); KETONE, URINE AUTO NEGATIVE (NEGATIVE); LEUKOCYTE ESTERASE, URINE AUTO NEGATIVE (NEGATIVE); MUCUS, URINE SMALL (NEGATIVE); NITRITE, URINE AUTO NEGATIVE (NEGATIVE); PROTEIN, URINE AUTO NEGATIVE (NEGATIVE); RBC, URINE AUTO 1 /HPF (0-3); SPECIFIC GRAVITY URINE AUTO 1.019 (1.002-1.035); SQUAMOUS EPITHELIAL CELL UR AU 0 /HPF (0-6); UROBILINOGEN, URINE AUTO 0.2 mg/dL (0.0-2.0); WBC, URINE AUTO 1 /HPF (0-3)
[2020-03-15 13:56] LABS: HEMOGLOBIN A1c 6.1 %
[2020-03-15 14:16] LABS: MALB URINE SIEMENS 8.2 MG/L; MAU/CREAT RATIO 5.3 MCG/MG (0.0-30.0)
[2020-03-15 14:18] LABS: C REACTIVE PROTEIN QUANTITATIV < 0.30 MG/DL (0.00-0.30); CHOLESTEROL LEVEL 144 MG/DL (<200); FREE T4 1.14 NG/DL (0.76-1.46); HDL CHOLESTEROL 64 MG/DL (>40); LDL CHOLESTEROL 66 MG/DL (<100); NON-HDL-C 80 MG/DL; PTH INTACT 26.9 PG/ML (18.5-88.0); THYROID STIMULATING HORMONE 0.927 uIU/ML (0.358-3.740); TOTAL 25(OH) VITAMIN D 59.3 NG/ML (30.0-100.0); TRIGLYCERIDES LEVEL 70 MG/DL (<150)
== END ==
LOC: M PLALAB 08:06
PROVIDERS: ATTEND Family Medicine
DX: E11.9 Type 2 diabetes mellitus without complications (principal); Z12.5 Encounter for screening for malignant neoplasm of prostate; N18.3 Chronic kidney disease, stage 3 (moderate)

== ENCOUNTER → 2020-08-31 | Outpatient (CLI) | payer OTHER ==
[~2020-08-31] MED LIST changes: +MONT10TA10 PO; -MONT5TAB2 PO
[2020-08-31 11:55] LABS: IMMUNOGLOBULIN E 16.5 IU/ML (<100)
== END ==
LOC: M PLALAB 08:33
PROVIDERS: ATTEND Nurse Practitioner Family
DX: R05 Cough (principal); H10.45 Other chronic allergic conjunctivitis; J30.1 Allergic rhinitis due to pollen; J30.81 Allergic rhinitis due to animal (cat) (dog) hair and dander; J30.89 Other allergic rhinitis

== ENCOUNTER → 2020-08-31 | Outpatient (REF) | payer OTHER ==
[2020-08-31 11:09] LABS: BASO % 0.8 % (0.0-1.0); EOS # 0.2 10^3/uL (0.0-0.5); HEMATOCRIT 42.2 % (42.0-52.0); HEMOGLOBIN 13.6 g/dl (13.5-17.5); LYMPH # 1.6 10^3/uL (1.5-5.0); LYMPH % 30.2 % (24.0-44.0); MEAN CORPUSCULAR HEMOGLOBIN 29.1 pg (27.0-33.0); MEAN CORPUSCULAR HGB CONC 32.2 g/dl (32.0-36.5); MEAN CORPUSCULAR VOLUME 90.4 fl (80.0-96.0); MONO # 0.5 10^3/uL (0.0-0.8); MONO % 9.2 % (2.0-8.0); NEUTROPHILS % 56.4 % (36.0-66.0); PLATELET COUNT, AUTOMATED 331 10^3/uL (150-450); RED BLOOD COUNT 4.67 10^6/uL (4.30-6.10); WHITE BLOOD COUNT 5.3 10^3/uL (4.0-10.0)
[2020-08-31 11:26] LABS: HEMOGLOBIN A1c 5.7 %
[2020-08-31 11:53] LABS: ALBUMIN 4.1 GM/DL (3.2-5.2); BILIRUBIN,TOTAL 0.6 MG/DL (0.2-1.0); CALCIUM LEVEL 9.2 MG/DL (8.8-10.2); CHOLESTEROL RISK RATIO 1.777 (<5); CREATININE FOR GFR 1.41 MG/DL (0.70-1.30); GLOMERULAR FILTRATION RATE 54.4 (>49); POTASSIUM SERUM 4.7 MEQ/L (3.5-5.1); PTH INTACT 42.4 PG/ML (18.5-88.0); TOTAL 25(OH) VITAMIN D 59.9 NG/ML (30.0-100.0); TOTAL PROTEIN 7.2 GM/DL (6.4-8.2)
== END ==
LOC: M PLALAB 08:33
PROVIDERS: ATTEND Family Medicine
DX: E11.9 Type 2 diabetes mellitus without complications (principal); N18.30 Chronic kidney disease, stage 3 unspecified

== ENCOUNTER → 2020-09-28 | Outpatient (CLI) | payer OTHER ==
[~2020-09-28] MED LIST changes: +E-Z-GAS II EFFERVESCENT PACKET (SODIUM BICARB./CITRIC ACID/SIMETHICONE) As Ordered ONE; +E-Z-HD 98% w/w 340GM SUSP BTL As Ordered ONE; +E-Z-PAQUE 96% w/w SUSP 176GM BTL As Ordered ONE
--- NOTE | 2020-09-28 16:52 | REP ---
INDICATION: GERD. COMPARISON: None TECHNIQUE: This procedure was performed by Millie Ybarra RUST, under the direct supervision of Dr. Flores. Images were reviewed with Dr. Flores prior to dictation. Liquid barium and gas producing crystals were given in the erect position, as well as liquid barium in the prone oblique position in order to perform a double contrast upper GI examination. Additional liquid barium was given at the end of the examination in order to perform a small-bowel follow-through. FINDINGS: The supervisor typesetting film shows no organomegaly or pathological masses. The intestinal gas pattern is unremarkable. The oral and pharyngeal stages of deglutition were unremarkable. Esophageal transport is prompt and efficient and there is no evidence of esophagitis, stricture, or mucosal ring. There is no evidence of a hiatal hernia. Gastroesophageal reflux was not visualized during the exam. The stomach rubio are normally outlined. The rugal folds are smooth and regular. There is no gastritis, neoplasm, or ulcerative disease. The duodenal rubio are normally outlined. The mucosal folds are smooth and regular. There is no duodenitis, peptic ulcer disease or neoplasm. The visualized portion of the proximal small bowel appears normal in course and caliber. The barium column was followed through the small bowel to the level of the terminal ileum. Small bowel transit time is approximately 200 minutes. During fluoroscopy gentle palpation shows all loops are freely movable and pliable. There is no fixed angulated loops. The small bowel mucosal pattern is normal in course and caliber. There is no transition to suggest a partial small bowel obstruction. Spot filming of the terminal ileum shows it to be unremarkable. IMPRESSION: Unremarkable upper GI and small-bowel follow-through. 0.8 minutes of fluoroscopy time was utilized for this procedure. Some fluoroscopic images are performed with last image hold technology. These images require no additional radiation. <Electronically signed by Millie Ybarra > 09/28/20 [id number] <Electronically signed by Pramod Flores > 09/28/20 [id number]
== END ==
LOC: M RAD 09:55
PROVIDERS: ATTEND Family Medicine
DX: K21.9 Gastro-esophageal reflux disease without esophagitis (principal)

== ENCOUNTER → 2021-03-07 | Outpatient (CLI) | payer OTHER ==
[~2021-03-07] MED LIST changes: -E-Z-GAS II EFFERVESCENT PACKET (SODIUM BICARB./CITRIC ACID/SIMETHICONE) As Ordered ONE; -E-Z-HD 98% w/w 340GM SUSP BTL As Ordered ONE; -E-Z-PAQUE 96% w/w SUSP 176GM BTL As Ordered ONE; +FLOV250A INH; -FLOV250A2 INH
[2021-03-07 10:38] LABS: BASO % 0.5 % (0.0-1.0); EOS # 0.2 10^3/uL (0.0-0.5); EOS % 2.3 % (0.0-3.0); HEMATOCRIT 46.5 % (42.0-52.0); HEMOGLOBIN 15.2 g/dl (13.5-17.5); LYMPH # 1.7 10^3/uL (1.5-5.0); LYMPH % 22.5 % (24.0-44.0); MEAN CORPUSCULAR HEMOGLOBIN 29.3 pg (27.0-33.0); MEAN CORPUSCULAR HGB CONC 32.7 g/dl (32.0-36.5); MEAN CORPUSCULAR VOLUME 89.6 fl (80.0-96.0); MONO # 0.7 10^3/uL (0.0-0.8); NEUTROPHILS % 65.3 % (36.0-66.0); PLATELET COUNT, AUTOMATED 313 10^3/uL (150-450); RED BLOOD COUNT 5.19 10^6/uL (4.30-6.10); WHITE BLOOD COUNT 7.7 10^3/uL (4.0-10.0)
[2021-03-07 10:40] LABS: APPEARANCE, URINE CLEAR (CLEAR); BACTERIA, URINE AUTO NEGATIVE (NEGATIVE); BILIRUBIN, URINE AUTO NEGATIVE (NEGATIVE); BLOOD, URINE BLOOD NEGATIVE (NEGATIVE); COLOR, URINE YELLOW (YELLOW); GLUCOSE, URINE (UA) AUTO NEGATIVE (NEGATIVE); KETONE, URINE AUTO NEGATIVE (NEGATIVE); LEUKOCYTE ESTERASE, URINE AUTO NEGATIVE (NEGATIVE); MUCUS, URINE SMALL (NEGATIVE); NITRITE, URINE AUTO NEGATIVE (NEGATIVE); PROTEIN, URINE AUTO NEGATIVE (NEGATIVE); RBC, URINE AUTO 1 /HPF (0-3); SPECIFIC GRAVITY URINE AUTO 1.024 (1.002-1.035); SQUAMOUS EPITHELIAL CELL UR AU 0 /HPF (0-6); UROBILINOGEN, URINE AUTO 0.2 mg/dL (0.0-2.0); WBC, URINE AUTO 1 /HPF (0-3)
[2021-03-07 11:58] LABS: MALB URINE SIEMENS 12.3 MG/L; MAU/CREAT RATIO 6.7 MCG/MG (0.0-30.0)
[2021-03-07 13:02] LABS: ALT/SGPT 42 U/L (12-78); BILIRUBIN,TOTAL 0.4 MG/DL (0.2-1.0); BLOOD UREA NITROGEN 31 MG/DL (7-18); CALCIUM LEVEL 9.3 MG/DL (8.8-10.2); CARBON DIOXIDE LEVEL 24 MEQ/L (21-32); CHLORIDE LEVEL 106 MEQ/L (98-107); CREATININE FOR GFR 1.47 MG/DL (0.70-1.30); FERRITIN 163 NG/ML (26-388); FREE T4 1.16 NG/DL (0.76-1.46); GLOMERULAR FILTRATION RATE 51.8 (>49); GLUCOSE, FASTING 98 MG/DL (70-100); POTASSIUM SERUM 5.1 MEQ/L (3.5-5.1); SODIUM LEVEL 141 MEQ/L (136-145); THYROID STIMULATING HORMONE 0.805 uIU/ML (0.358-3.740); TOTAL PROTEIN 7.6 GM/DL (6.4-8.2); VITAMIN B12 LEVEL > 2000 PG/ML (247-911)
[2021-03-08 08:10] LABS: H PYLORI SERUM QUANT IgG ABY 0.53 (0.00-0.79); INSULIN LEVEL 11.1 uIU/mL (2.6-24.9)
== END ==
LOC: M PLALAB 08:58
PROVIDERS: ATTEND Family Medicine
DX: E53.8 Deficiency of other specified B group vitamins (principal); N18.30 Chronic kidney disease, stage 3 unspecified; E11.22 Type 2 diabetes mellitus with diabetic chronic kidney disease; Z12.5 Encounter for screening for malignant neoplasm of prostate; K21.9 Gastro-esophageal reflux disease without esophagitis
CPT/HCPCS: 36415; 80053; 81001; 82043; 82607; 82728; 82747; 83036; 83525; 84439; 84443; 85025; 86677; G0103

== ENCOUNTER → 2021-03-21 | Outpatient (CLI) | payer OTHER ==
[~2021-03-21] MED LIST changes: -MONT10TA10 PO; +MONT10TA97 PO
[2021-03-21 11:22] LABS: ALBUMIN 4.2 GM/DL (3.2-5.2); CALCIUM LEVEL 9.7 MG/DL (8.8-10.2); CREATININE FOR GFR 1.54 MG/DL (0.70-1.30); GLOMERULAR FILTRATION RATE 49.1 (>49); PHOSPHORUS LEVEL 3.4 MG/DL (2.5-4.9); POTASSIUM SERUM 4.6 MEQ/L (3.5-5.1)
[2021-03-21 11:33] LABS: PTH INTACT 34.7 PG/ML (18.5-88.0); TOTAL 25(OH) VITAMIN D 49.8 NG/ML (30.0-100.0)
[2021-03-25 01:06] LABS: Alkaline Phosphatase Iso-Bone 23 % (12-68); Alkaline Phosphatase Iso-Intes 6 % (0-18); Alkaline Phosphatase Iso-Liver 71 % (13-88); TOTAL ALK PHOS 103 IU/L (44-121)
== END ==
LOC: M PLALAB 08:16
PROVIDERS: ATTEND Family Medicine
DX: R74.8 Abnormal levels of other serum enzymes (principal)

== ENCOUNTER → 2021-03-31 | Outpatient (CLI) | payer OTHER ==
[~2021-03-31] MED LIST changes: +MONT10TA10 PO; -MONT10TA97 PO
--- NOTE | 2021-03-31 09:55 | REP ---
INDICATION: CKD COMPARISON: Liver ultrasound dated 10/07/2007 TECHNIQUE: Real time B-mode rodriguez scale ultrasound examination using curved array transducer. FINDINGS: Liver demonstrates fatty infiltration with focal fatty sparing adjacent to the gallbladder fossa. Spleen is normal in size and echogenicity without focal splenic abnormality. The pancreas is limited in evaluation due to interposed bowel gas but visualized portions appear normal. Gallbladder is normal without gallstones, wall thickening, or pericholecystic fluid. No biliary ductal dilatation is appreciated and the common bile duct measures 4.2 mm in diameter. The bilateral kidneys are normal in reniform shape without hydronephrosis or obvious abnormality. Right kidney measures 9.8 x 5.2 x 4.6 cm. Left kidney measures 10.1 x 5.0 x 5.3 cm. Abdominal aorta appears grossly normal and measures 2.4 cm maximal diameter. No ascites. IMPRESSION: 1. Hepatosteatosis. <Electronically signed by Pavel Alexander > 03/31/21 [id number]
--- NOTE | 2021-03-31 09:59 | REP ---
INDICATION: CKD COMPARISON: None TECHNIQUE: Real time rodriguez scale ultrasound examination using curved array transducer followed by color Doppler evaluation of the renal vasculature. FINDINGS: The bilateral kidneys are normal in contour, size, and reniform shape with increased central sinus fat. No hydronephrosis, nephrolithiasis, cystic or renal mass lesion. Right kidney measures 9.8 x 5.2 x 4.6 cm. Left kidney measures 10.1 x 5.0 x 5.3 cm.. Color Doppler evaluation. Peak aortic velocity: 96 centimeters/second RIGHT KIDNEY Renal arterial velocity: 111 centimeters/second Renal-aortic ratio: 1.2 Intrarenal resistive indices: 0.72-0.77 Intrarenal acceleration times: 0.02-0.04 LEFT KIDNEY Renal arterial velocity: 118 centimeters/second Renal-aortic ratio: 1.2 Intrarenal resistive indices: 0.77-0.80 Intrarenal acceleration times: 0.03-0.05 IMPRESSION: 1. Chronic medical renal disease. No hydronephrosis. 2. Doppler interegation without sonographic evidence for renal arterial stenosis. <Electronically signed by Pavel Alexander > 03/31/21 [id number]
--- NOTE | 2021-03-31 10:31 | REP ---
INDICATION: CKD. COMPARISON: None. TECHNIQUE: Real-time sonographic evaluation of the urinary bladder using transvesical technique with Doppler FINDINGS: The pre void urinary bladder volume calculation is 227 cc and the postvoid urinary bladder volume calculation is 58 cc. This renders a 26% postvoid residual. There are no large masses are significant mucosal abnormalities. IMPRESSION: As above. If urinary bladder neoplasm is of clinical concern then cystoscopy would be in order. <Electronically signed by Shankar Smith > 03/31/21 [id number]
== END ==
LOC: M RAD 08:30
PROVIDERS: ATTEND Family Medicine
DX: N18.30 Chronic kidney disease, stage 3 unspecified (principal); R74.8 Abnormal levels of other serum enzymes; K76.0 Fatty (change of) liver, not elsewhere classified

== ENCOUNTER → 2021-09-09 | Outpatient (CLI) | payer OTHER ==
[~2021-09-09] MED LIST changes: -MONT10TA10 PO; +MONT10TA97 PO
[2021-09-09 10:19] LABS: BASO # 0.1 10^3/uL (0.0-0.2); BASO % 0.8 % (0.0-1.0); EOS # 0.1 10^3/uL (0.0-0.5); EOS % 2.4 % (0.0-3.0); HEMATOCRIT 42.4 % (42.0-52.0); LYMPH # 1.7 10^3/uL (1.5-5.0); LYMPH % 29.2 % (24.0-44.0); MEAN CORPUSCULAR HEMOGLOBIN 29.7 pg (27.0-33.0); MONO # 0.6 10^3/uL (0.0-0.8); MONO % 10.6 % (2.0-8.0); NEUTROPHILS # 3.4 10^3/uL (1.5-8.5); NEUTROPHILS % 56.7 % (36.0-66.0); PLATELET COUNT, AUTOMATED 303 10^3/uL (150-450); RED BLOOD COUNT 4.71 10^6/uL (4.30-6.10)
[2021-09-09 11:49] LABS: CREATININE,RANDOM URINE 67.2 MG/DL; TOTAL PROTEIN,RANDOM URINE 9.3 MG/DL (0.0-12.0)
[2021-09-09 12:19] LABS: ALBUMIN 3.9 GM/DL (3.2-5.2); BILIRUBIN,TOTAL 0.8 MG/DL (0.2-1.0); CHOLESTEROL RISK RATIO 2.09 (<5); CREATININE FOR GFR 1.53 MG/DL (0.70-1.30); GLOMERULAR FILTRATION RATE 49.3 (>49); POTASSIUM SERUM 4.6 MEQ/L (3.5-5.1); TOTAL PROTEIN 7.1 GM/DL (6.4-8.2)
[2021-09-09 15:17] LABS: HEMOGLOBIN A1c 5.8 %
== END ==
LOC: M PLALAB 08:19
PROVIDERS: ATTEND Family Medicine
DX: N18.30 Chronic kidney disease, stage 3 unspecified (principal); E53.8 Deficiency of other specified B group vitamins; Z12.5 Encounter for screening for malignant neoplasm of prostate; E11.9 Type 2 diabetes mellitus without complications
CPT/HCPCS: 36415; 80053; 80061; 82570; 82607; 83036; 83525; 84156; 84165; 85025; 86037; G0103

== ENCOUNTER 2021-10-29 00:58 | Emergency (ER) | payer OTHER ==
[~2021-10-29] VITALS: Ht 182.9 cm; Wt 70.6 kg
[2021-10-29] MEDS ORDERED: ADV250INH INH (01:12)
[2021-10-29] MEDS ORDERED: FAMO40TA3 (01:14)
[2021-10-29 07:02] VITALS: BP 145/69
[2021-10-29] MEDS ORDERED: KETOROLAC 30 MG/ML 1ML VIAL IM ONE (07:25)
[2021-10-29] MEDS ORDERED: ACETAMINOPHEN 500 MG TAB PO ONE (07:30)
== END 2021-10-29 07:34 | disposition home or self-care (01) ==
LOC: M ED 00:58
DX: S09.90XA Unspecified injury of head, initial encounter (principal); W01.190A Fall on same level from slipping, tripping and stumbling with subsequent striking against furniture, initial encounter; E11.9 Type 2 diabetes mellitus without complications; I10 Essential (primary) hypertension; E78.5 Hyperlipidemia, unspecified; J45.909 Unspecified asthma, uncomplicated; K76.0 Fatty (change of) liver, not elsewhere classified; J30.89 Other allergic rhinitis; Z79.84 Long term (current) use of oral hypoglycemic drugs; Z79.899 Other long term (current) drug therapy

== ENCOUNTER → 2022-02-22 | Outpatient (CLI) | payer OTHER ==
[~2022-02-22] MED LIST changes: +ADV250INH INH; +FAMO40TA3
[2022-02-22 09:48] LABS: INR 0.94; PROTHROMBIN TIME 12.8 SECONDS (12.5-14.5)
[2022-02-22 09:49] LABS: PARTIAL THROMBOPLASTIN TIME 31.1 SECONDS (24.8-34.2)
[2022-02-22 10:39] LABS: ALBUMIN 4.2 G/DL (3.2-5.2); CALCIUM LEVEL 9.5 MG/DL (8.3-10.6); CREATININE FOR GFR 1.33 MG/DL (0.70-1.30); PHOSPHORUS LEVEL 3.1 MG/DL (2.4-5.1); POTASSIUM SERUM 4.6 MMOL/L (3.5-5.1); PTH INTACT 30.7 PG/ML (18.5-88.0); TOTAL 25(OH) VITAMIN D 69.2 NG/ML (20.0-100.0)
[2022-02-22 11:31] LABS: HEMOGLOBIN A1c 5.8 % (4.0-6.0)
[2022-02-25 02:07] LABS: INSULIN LEVEL 4.7 uIU/mL (2.6-24.9)
== END ==
LOC: M LAB 08:53
PROVIDERS: ATTEND Family Medicine
DX: E55.9 Vitamin D deficiency, unspecified (principal); E11.9 Type 2 diabetes mellitus without complications
CPT/HCPCS: 36415; 80069; 82105; 82140; 82172; 82306; 83010; 83036; 83525; 83880; 83883; 83970; 85610; 85730; G0103

== ENCOUNTER → 2022-08-23 | Outpatient (CLI) | payer OTHER ==
[2022-08-23 14:33] LABS: COMPLEMENT C3 149.9 MG/DL (90.0-170.0); IMMUNOGLOBULIN A 165.6 MG/DL (40-350); IMMUNOGLOBULIN M 187.1 MG/DL (50-300)
[2022-08-23 15:00] LABS: IMMUNOGLOBULIN E 11.6 IU/ML (0-378)
== END ==
LOC: M LAB 12:20
PROVIDERS: ATTEND Allergy & Immunology
DX: J30.1 Allergic rhinitis due to pollen (principal); R05.3 Chronic cough; J32.0 Chronic maxillary sinusitis

== ENCOUNTER → 2022-08-23 | Outpatient (CLI) | payer OTHER ==
[2022-08-23 10:47] LABS: BASO # 0.1 10^3/uL (0.0-0.2); BASO % 0.7 % (0.0-1.0); EOS # 0.2 10^3/uL (0.0-0.5); EOS % 2.1 % (0.0-3.0); HEMATOCRIT 42.2 % (42.0-52.0); HEMOGLOBIN 13.8 g/dl (13.5-17.5); LYMPH # 2.4 10^3/uL (1.5-5.0); LYMPH % 33.6 % (24.0-44.0); MEAN CORPUSCULAR HEMOGLOBIN 29.3 pg (27.0-33.0); MEAN CORPUSCULAR HGB CONC 32.7 g/dl (32.0-36.5); MEAN CORPUSCULAR VOLUME 89.6 fl (80.0-96.0); MONO # 0.6 10^3/uL (0.0-0.8); MONO % 9.1 % (2.0-8.0); NEUTROPHILS # 3.8 10^3/uL (1.5-8.5); NEUTROPHILS % 54.2 % (36.0-66.0); PLATELET COUNT, AUTOMATED 311 10^3/uL (150-450); RED BLOOD COUNT 4.71 10^6/uL (4.30-6.10)
[2022-08-23 11:04] LABS: HEMOGLOBIN A1c 5.7 % (4.0-6.0)
[2022-08-23 11:17] LABS: CREATININE, URINE 169.8 MG/DL; MAU/CREAT RATIO 2.3 MCG/MG (0.0-30.0)
[2022-08-23 11:18] LABS: C REACTIVE PROTEIN QUANTITATIV 0.6 MG/DL (<1.0)
[2022-08-23 11:20] LABS: CHOLESTEROL RISK RATIO 2.45 (<5); HDL CHOLESTEROL 49.7 MG/DL (>40); LDL CHOLESTEROL 57.7 MG/DL (<100); NON-HDL-C 72.3 MG/DL
[2022-08-23 11:21] LABS: FERRITIN 125.3 NG/ML (10.5-307.3); FREE T4 1.18 NG/DL (0.89-1.76); THYROID STIMULATING HORMONE 1.135 uIU/ML (0.55-4.78)
[2022-08-25 07:09] LABS: APOLIPOPROTEIN B/A-1 RATIO 0.4 ratio (0.0-0.7)
== END ==
LOC: M LAB 09:04
PROVIDERS: ATTEND Family Medicine
DX: E78.2 Mixed hyperlipidemia (principal); E11.9 Type 2 diabetes mellitus without complications; E53.8 Deficiency of other specified B group vitamins

== ENCOUNTER → 2023-02-20 | Outpatient (CLI) | payer OTHER ==
[2023-02-20 08:30] LABS: HEMATOCRIT 45.4 % (42.0-52.0)
[2023-02-20 08:31] LABS: BASO # 0.1 10^3/uL (0.0-0.2); BASO % 0.8 % (0.0-1.0); EOS # 0.2 10^3/uL (0.0-0.5); EOS % 2.6 % (0.0-3.0); HEMATOCRIT 45.5 % (42.0-52.0); HEMOGLOBIN 14.7 g/dl (13.5-17.5); LYMPH % 31.3 % (24.0-44.0); MEAN CORPUSCULAR HEMOGLOBIN 29.1 pg (27.0-33.0); MEAN CORPUSCULAR HGB CONC 32.3 g/dl (32.0-36.5); MEAN CORPUSCULAR VOLUME 89.9 fl (80.0-96.0); MONO # 0.6 10^3/uL (0.0-0.8); NEUTROPHILS # 3.5 10^3/uL (1.5-8.5); PLATELET COUNT, AUTOMATED 273 10^3/uL (150-450); RED BLOOD COUNT 5.06 10^6/uL (4.30-6.10); WHITE BLOOD COUNT 6.4 10^3/uL (4.0-10.0)
[2023-02-20 08:57] LABS: ALBUMIN 4.2 G/DL (3.2-5.2); BILIRUBIN,TOTAL 0.4 MG/DL (0.3-1.2); CALCIUM LEVEL 9.7 MG/DL (8.3-10.6); CREATININE FOR GFR 1.6 MG/DL (0.70-1.30); GLOMERULAR FILTRATION RATE 46.7 (>49); POTASSIUM SERUM 4.5 MMOL/L (3.5-5.1); PTH INTACT 39.5 PG/ML (18.5-88.0); TOTAL PROTEIN 7.1 G/DL (5.7-8.2)
[2023-02-20 08:58] LABS: FERRITIN 75.1 NG/ML (10.5-307.3)
[2023-02-20 08:59] LABS: TOTAL 25(OH) VITAMIN D 72.8 NG/ML (20.0-100.0)
== END ==
LOC: M LAB 08:01
PROVIDERS: ATTEND Family Medicine
DX: E53.8 Deficiency of other specified B group vitamins (principal); I10 Essential (primary) hypertension; E55.9 Vitamin D deficiency, unspecified; K76.0 Fatty (change of) liver, not elsewhere classified

== ENCOUNTER → 2023-03-05 | Outpatient (REF) | payer OTHER | LOC: M SFHCPLAZ 11:47 | PROVIDERS: ATTEND Family Medicine | DX: E11.9 Type 2 diabetes mellitus without complications (principal); Z12.5 Encounter for screening for malignant neoplasm of prostate; E78.2 Mixed hyperlipidemia; K76.0 Fatty (change of) liver, not elsewhere classified; Z53.9 Procedure and treatment not carried out, unspecified reason ==

== ENCOUNTER → 2023-03-08 | Outpatient (CLI) | payer OTHER | LOC: M RAD 07:02 | PROVIDERS: ATTEND Family Medicine | DX: N18.31 Chronic kidney disease, stage 3a (principal); K76.0 Fatty (change of) liver, not elsewhere classified; N40.0 Benign prostatic hyperplasia without lower urinary tract symptoms ==

== ENCOUNTER → 2023-09-04 | Outpatient (CLI) | payer OTHER ==
[~2023-09-04] MED LIST changes: +ESOM1CAP20 PO; -ESOM1CAP5 PO; +IRBE75TA11 PO; -IRBE75TA4 PO
[2023-09-04 09:10] LABS: TOTAL PROTEIN,RANDOM URINE 18.6 MG/DL (0.0-14.0)
[2023-09-04 09:11] LABS: HEMOGLOBIN A1c 5.8 % (4.0-6.0)
[2023-09-04 09:15] LABS: CREATININE, URINE 94.9 MG/DL; CREATININE,RANDOM URINE 94.9 MG/DL; MAU/CREAT RATIO 4.2 MCG/MG (0.0-30.0)
[2023-09-04 09:16] LABS: ALBUMIN 3.8 G/DL (3.2-5.2); BILIRUBIN,TOTAL 0.6 MG/DL (0.3-1.2); CALCIUM LEVEL 9.4 MG/DL (8.3-10.6); CHOLESTEROL RISK RATIO 2.2 (<5); CREATININE FOR GFR 1.55 MG/DL (0.70-1.30); GLOMERULAR FILTRATION RATE 48.3 (>49); LDL CHOLESTEROL 52.8 MG/DL (<100); POTASSIUM SERUM 4.5 MMOL/L (3.5-5.1); PSA SCREENING 1.74 NG/ML (< 4.00); TOTAL PROTEIN 6.5 G/DL (5.7-8.2)
== END ==
LOC: M LAB 08:09
PROVIDERS: ATTEND Family Medicine
DX: E11.9 Type 2 diabetes mellitus without complications (principal); Z12.5 Encounter for screening for malignant neoplasm of prostate; E78.2 Mixed hyperlipidemia; K76.0 Fatty (change of) liver, not elsewhere classified
CPT/HCPCS: 36415; 80053; 80061; 82043; 82570; 83036; 84156; G0103

== ENCOUNTER → 2023-09-10 | Outpatient (REF) | payer OTHER | LOC: M SFHCPLAZ 12:18 | PROVIDERS: ATTEND Family Medicine | DX: E11.9 Type 2 diabetes mellitus without complications (principal); N18.31 Chronic kidney disease, stage 3a; E53.8 Deficiency of other specified B group vitamins; Z53.8 Procedure and treatment not carried out for other reasons ==

== ENCOUNTER → 2023-10-10 | Outpatient (CLI) | payer OTHER | LOC: M RAD 08:08 | PROVIDERS: ATTEND Family Medicine | DX: J32.9 Chronic sinusitis, unspecified (principal); R10.9 Unspecified abdominal pain ==

== ENCOUNTER → 2024-02-14 | Outpatient (CLI) | payer OTHER ==
[2024-02-14 09:00] LABS: COMPLEMENT C3 129.4 MG/DL (90.0-170.0); COMPLEMENT C4 26.6 MG/DL (12-36); IMMUNOGLOBULIN A 174.8 MG/DL (40-350); IMMUNOGLOBULIN G 818 MG/DL (650-1600)
[2024-02-15 10:12] LABS: ALPHA 1 ANTITRYPSIN 145 mg/dL (83-199)
[2024-02-15 15:07] LABS: ALMOND IGE FOOD < 0.10 kU/L (<0.10); BERMUDA GRASS IGE < 0.10 kU/L (<0.10); BIRCH IGE < 0.10 kU/L (<0.10); CASHEW NUT IGE FOOD 0.63 kU/L (<0.10); CODFISH IGE FOOD < 0.10 kU/L (<0.10); COMMON RAGWEED SHORT IGE < 0.10 kU/L (<0.10); COWS MILK FOOD 0.28 kU/L (<0.10); D001 IGE D PTERONYSSINUS 1.86 kU/L (<0.10); D002-IGE D FARINAE 3.83 kU/L (<0.10); E001-IGE CAT DANDER 0.29 kU/L (<0.10); E005-IGE DOG DANDER < 0.10 kU/L (<0.10); EGG WHITE FOOD 0.3 kU/L (<0.10); ELM IGE < 0.10 kU/L (<0.10); HAZELNUT IGE FOOD < 0.10 kU/L (<0.10); I006 IGE COCKROACH < 0.10 kU/L (<0.10); M002 IGE CLADOSPORIUM HERBARU < 0.10 kU/L (<0.10); M006 IGE ALTERNIA ALTERNATA < 0.10 kU/L (<0.10); M1-PENICILLIUM NOTATUM < 0.10 kU/L (<0.10); MOUSE URINE IGE < 0.10 kU/L (<0.10); MUGWORT IGE < 0.10 kU/L (<0.10); OAK IGE < 0.10 kU/L (<0.10); PEANUT IGE FOOD < 0.10 kU/L (<0.10); ROUGH PIGWEED IGE < 0.10 kU/L (<0.10); SALMON IGE FOOD < 0.10 kU/L (<0.10); SCALLOP IGE FOOD < 0.10 kU/L (<0.10); SESAME SEED IGE FOOD < 0.10 kU/L (<0.10); SHEEP SORREL IGE < 0.10 kU/L (<0.10); SHRIMP IGE FOOD < 0.10 kU/L (<0.10); SOYBEAN IGE FOOD < 0.10 kU/L (<0.10); SYCAMORE IGE < 0.10 kU/L (<0.10); T001-IGE MAPLE BOX ELDER < 0.10 kU/L (<0.10); T006-IGE MOUNTAIN CEDAR < 0.10 kU/L (<0.10); T014 COTTONWOOD IGE < 0.10 kU/L (<0.10); TIMOTHY GRASS IGE 0.83 kU/L (<0.10); TUNA IGE FOOD < 0.10 kU/L (<0.10); WALNUT IGE FOOD < 0.10 kU/L (<0.10); WALNUT TREE IGE < 0.10 kU/L (<0.10); WHEAT IGE FOOD < 0.10 kU/L (<0.10); WHITE ASH IGE < 0.10 kU/L (<0.10); WHITE MULBERRY IGE < 0.10 kU/L (<0.10)
[2024-02-18 15:33] LABS: E094-IgE Fel d 1 0.34 kU/L (<0.10); E228-IgE Fel d 4 < 0.10 kU/L (<0.10); E231 IGE FEL D 7 < 0.10 kU/L (<0.10); IMMUNOGLOBULIN E FOR ALLERGENS 44 kU/L (<OR=114)
== END ==
LOC: M LAB 07:00
PROVIDERS: ATTEND Allergy & Immunology
DX: J30.1 Allergic rhinitis due to pollen (principal); R05.3 Chronic cough

== ENCOUNTER → 2024-02-14 | Outpatient (CLI) | payer OTHER ==
[2024-02-14 08:57] LABS: HEMOGLOBIN A1c 5.8 % (4.0-6.0)
[2024-02-14 09:03] LABS: BILIRUBIN,TOTAL 0.4 MG/DL (0.3-1.2); CALCIUM LEVEL 10.1 MG/DL (8.3-10.6); CREATININE FOR GFR 1.5 MG/DL (0.70-1.30); FERRITIN 64.1 NG/ML (10.5-307.3); GLOMERULAR FILTRATION RATE 50.2 (>49); POTASSIUM SERUM 4.7 MMOL/L (3.5-5.1)
[2024-02-14 09:04] LABS: PTH INTACT 31.1 PG/ML (18.5-88.0)
[2024-02-14 09:05] LABS: TOTAL 25(OH) VITAMIN D 71.6 NG/ML (20.0-100.0)
== END ==
LOC: M LAB 06:58
PROVIDERS: ATTEND Family Medicine
DX: E11.9 Type 2 diabetes mellitus without complications (principal); E53.8 Deficiency of other specified B group vitamins; N18.31 Chronic kidney disease, stage 3a

== ENCOUNTER → 2025-03-10 | Outpatient (CLI) | payer MEDICARE, OTHER ==
[~2025-03-10] MED LIST changes: -ADV250INH INH; -ADV500INH INH; +ADVA1AER10 INH; +ADVA1AER9 INH
[2025-03-10 09:40] LABS: BASO # 0.1 10^3/uL (0.0-0.2); BASO % 0.8 % (0.0-1.0); EOS # 0.1 10^3/uL (0.0-0.5); EOS % 1.8 % (0.0-3.0); LYMPH # 1.6 10^3/uL (1.5-5.0); LYMPH % 26.0 % (24.0-44.0); MONO # 0.6 10^3/uL (0.0-0.8); MONO % 9.5 % (2.0-8.0); NEUTROPHILS # 3.7 10^3/uL (1.5-8.5); NEUTROPHILS % 61.6 % (36.0-66.0); PLATELET COUNT, AUTOMATED 280 10^3/uL (150-450)
[2025-03-10 09:58] LABS: ALT/SGPT 24.0 U/L (7.0-40); AST/SGOT 24.0 U/L (<34); CALCIUM LEVEL 9.4 MG/DL (8.3-10.6); CARBON DIOXIDE LEVEL 27.0 MMOL/L (20-31); CHLORIDE LEVEL 103.0 MMOL/L (98-107); CREATININE FOR GFR 1.67 MG/DL (0.70-1.30); GLOMERULAR FILTRATION RATE 45.1 (>49); POTASSIUM SERUM 4.5 MMOL/L (3.5-5.1); PSA SCREENING 3.5 NG/ML (< 4.00); SODIUM LEVEL 140.0 MMOL/L (136-145)
[2025-03-10 09:59] LABS: VITAMIN B12 LEVEL 741.0 PG/ML (211-911)
[2025-03-10 10:02] LABS: ESTIMATED AVERAGE GLUCOSE 123.0 MG/DL (60-110)
[2025-03-10 14:47] LABS: TOTAL PROTEIN,RANDOM URINE 28.0 MG/DL (0.0-14.0)
[2025-03-12 12:43] LABS: PROTEIN CREATININE RATIO 180 mg/g creat (25-148); T PROTEIN CREATININE RATIO 0.180 (0.025-0.148); UPEP ALBUMIN 23 %; UPEP CREATININE 128 mg/dL (20-320); UPEP TOTAL PROTEIN 23 mg/dL (5-25); URINE ALPHA 1 GLOBULIN 10 %; URINE ALPHA 2 GLOBULIN 20 %; URINE BETA GLOBULIN 16 %; URINE GAMMA GLOBULIN 31 %
[2025-03-14 08:47] LABS: FREE LAMBDA LIGHT CHAINS URINE 32.62 mg/L (<=3.79); KAPPA/LAMBDA RATIO URINE 6.54 (<=8.69)
[2025-03-19 11:03] LABS: RBC FOLATE 543.0 NG/ML (280-791)
== END ==
LOC: M LAB 07:59
PROVIDERS: ATTEND Family Medicine
DX: N18.31 Chronic kidney disease, stage 3a (principal); I10 Essential (primary) hypertension; D50.9 Iron deficiency anemia, unspecified; E11.9 Type 2 diabetes mellitus without complications; Z12.5 Encounter for screening for malignant neoplasm of prostate; E53.8 Deficiency of other specified B group vitamins